=== PATIENT | male | born 1980 | race Caucasian/White ===

== ENCOUNTER 2022-12-03 08:14 | Emergency (ER) | payer SELFPAY ==
--- NOTE | ~2022-12-03 | CT_ITS ---
EXAMINATION: CT ABDOMEN AND PELVIS WITH CONTRAST CLINICAL INFORMATION: fevers, llq abd pain and diarrhea COMPARISON: None TECHNIQUE: Multidetector volumetric images were obtained from the superior aspect of the liver through the pubic symphysis following administration 85 mL of Omnipaque 350 intravenous contrast. Sagittal and coronal reformatted images were obtained on the technologist's workstation. Oral contrast: No This CT examination was performed using dose optimization techniques as appropriate, variously including the following: *Automated exposure control *Adjustment of mA and/or kV according to patient size (this includes techniques or standardized protocols for targeted exams where dose is matched to indication/reason for exam; i.e. extremities or head) *Use of iterative reconstruction technique DLP: 733 mGy-cm FINDINGS: LUNG BASES: The visualized lung bases are unremarkable. LIVER, GALLBLADDER, AND BILIARY TREE: Relative hypoattenuation of the hepatic parenchyma is consistent with steatosis. Focal fatty sparing is seen around the gallbladder fossa. The gallbladder is unremarkable with no evidence of radiopaque gallstones, gallbladder wall thickening, or obvious pericholecystic inflammatory changes. PANCREAS: Unremarkable. SPLEEN: Unremarkable. ADRENAL GLANDS: Unremarkable. KIDNEYS AND URETERS: The kidneys are normal in size, shape, and attenuation. No hydronephrosis, hydroureter, or calculi seen. No perinephric stranding. BLADDER: Unremarkable. GASTROINTESTINAL TRACT: There is focal bowel wall thickening at the sigmoid colon with significant pericolonic fat stranding around a diverticulum, most consistent with acute diverticulitis. The fat stranding extends into the adjacent retroperitoneal fascia without appreciable fluid collections. No significant extraluminal gas. A few additional colonic diverticula are identified. No other areas of diverticulitis. Appendix is normal. ABDOMINAL WALL: Small fat-containing umbilical and left inguinal hernias. Scar tissue is evident in the right inguinal region, potentially due to a prior right inguinal hernia repair. LYMPH NODES: Normal. VASCULAR: Unremarkable. PELVIC VISCERA: Unremarkable. OSSEOUS STRUCTURES: Mild osteoarthritis in the hips. No acute osseous findings. CT/CT abdomen pelvis w IV con IMPRESSION: 1. Acute uncomplicated sigmoid diverticulitis. 2. Hepatic steatosis. Fleischner guidelines were followed.
[2022-12-03 08:28] VITALS: BP 158/97; PULSE 99; RESP 16; TEMP 37.4; O2SAT 98; BMI 34.9
[2022-12-03 09:25] LABS: MANUAL DIFF FLAG NO
[2022-12-03] MEDS: Acetaminophen 325 MG TABLET 975 MG PO (09:25)
[2022-12-03 09:26] VITALS: RESP 16
[2022-12-03] MEDS: ondansetron HCL 4 MG/2 ML VIAL IVPUSH (09:26)
[2022-12-03] MEDS: Morphine Sulfate 4 MG/ML CARTRIDGE IVPUSH (09:26)
[2022-12-03 09:27] LABS: Basophils Percent Auto 0.3 % (0-2); Eosinophils Percent Auto 0.1 % (0-4); Hematocrit 40.5 % (42.0-52.0); Hemoglobin 14.1 g/dl (14.0-18.0); Imm Gran Abs Auto 0.03 X10*3/uL (0.00-0.03); Imm Gran Pct Auto 0.2 % (0.0-0.4); Lymphocytes Absolute Auto 1.7 X10*3/uL (1.2-4.9); Lymphocytes Percent Auto 13.2 % (20-40); Mean Corpuscular HGB Conc 34.8 g/dl (31.0-36.0); Mean Corpuscular Hemoglobin 30.1 pg (27.0-33.0); Mean Corpuscular Volume 86.4 fL (80.0-98.0); Mean Platelet Volume 10.5 fL (9.4-12.4); Monocytes Absolute Auto 1.7 X10*3/uL (0.1-1.2); Monocytes Percent Auto 13.4 % (2-11); Neutrophils Absolute Auto 9.3 x10*3/uL (2.0-8.3); Neutrophils Percent Auto 72.8 % (45-73); Platelet Count 240 X10*3/uL (160-400); Red Blood Count 4.69 X10*6/uL (4.60-5.80); Red Cell Distribution Width 11.8 % (11.0-16.0); SCAN SMEAR FLAG 1; White Blood Count 12.8 X10*3/uL (4.8-10.8)
[2022-12-03] MEDS: 0.9 % Sodium Chloride 1,000 ML 999 ML IVCONT (09:31)
[2022-12-03 09:33] LABS: INTERNATIONAL NORM RATIO 1.2 (0.9-1.1); Prothrombin Time 13.7 SEC (10.0-13.1)
[2022-12-03 09:50] LABS: Alanine Aminotransferase 28 U/L (0-40); Albumin Level 4.1 g/dL (3.5-5.0); Alkaline Phosphatase 50 U/L (39-117); Anion Gap 18 (12-20); Aspartate Amino Transferase 21 U/L (5-37); Bilirubin Total 1.2 mg/dL (0.0-1.0); Blood Urea Nitrogen 14 mg/dL (9-16); C Reactive Protein 25.25 mg/dL (< or = 0.50); Calcium 9.3 mg/dL (8.4-10.2); Carbon Dioxide 21 mmol/L (22-29); Chloride 105 mmol/L (96-108); Creatinine Clr Calc Pharmacy 89.7; Estimated Glomerular Filt Rate > 60; Glucose Random 123 mg/dL (60-115); Lipase 11 U/L (8-78); Magnesium 2.1 mg/dL (1.6-2.6); Potassium 3.5 mmol/L (3.3-5.1); Sodium 140 mmol/L (135-145); Total Protein 6.6 g/dL (6.5-8.0)
[2022-12-03] MEDS: iohexoL 350 MG/ML 100 ML INFUS..BTL IV (09:58)
[2022-12-03 10:03] LABS: Erythrocyte Sedimentation Rate 29 MM/HR (0-15)
[2022-12-03 10:04] LABS: Influenza A PCR NEGATIVE (Negative); Influenza B PCR NEGATIVE (Negative); Resp Syncy Virus RNA Qual PCR NEGATIVE (Negative); SARS COV2 PCR INHOUSE NEGATIVE (Negative)
--- NOTE | 2022-12-03 10:05 | ED.ABDPAIN ---
HPI - Abdominal Pain General Chief Complaint: Abdominal Pain Stated Complaint: Lower L abd pain, fever, headache Time Seen by Provider: 12/03/22 08:32 Source: patient and family Mode of arrival: ambulatory Limitations: no limitations History of Present Illness HPI narrative: 42 year old male c PMHX of gout who presents to the ed after a 4 day history of 8 out 10 constant dull lower abdominal pain. The patient reports yesterday evening the pain localized to the LLQ 10 out of 10 sharp pain. Last bowel movement this morning diarrhea. No bloody stools. Denies dysuria, frequency and urgency. Denies chest pain and palpitations. No vomiting and nausea. Laying flat makes the pain worse. Tried taking Tylenol last night, did not help pain. He reports dysuria, chills and sweats. No temp taken. Prior to abdominal pain onset the patient reports GERD symptoms, which he had never experience prior. Sick contacts positive, the patient is a teacher. Last food intake yesterday evening, consisted of saltine crackers. Surgical history includes right lower groin hernia repair 10 + years ago at [facility]. ? MD elicited complaint: abdominal pain Pertinent past history: other Onset (ago): day(s) Pain Consistency: constant Location: LLQ Severity: severe Pain scale (0-10): 10 Quality: sharp (LLQ) Radiation: none Migration to: no migration Exacerbating factors: other (Supine position ) Relieving factors: other (Sitting up helps ) Context: sick contacts Associated symptoms: diarrhea and chills Treatments prior to arrival: other (Tylenol ) Related Data Previous Rx's Medication Instructions Recorded amoxicillin 875 mg-potassium 1 tab PO BID DIVERTICULITIS 10 12/03/22 clavulanate 125 mg tablet days #20 tabs ibuprofen 800 mg tablet 800 mg PO Q8H PRN pain #14 tabs 12/03/22 ondansetron HCl 4 mg tablet 4 mg PO Q8H Nausea and vomiting 12/03/22 #14 tabs oxycodone 5 mg tablet 5 mg PO Q6H PRN pain #14 tabs 12/03/22 Allergies Allergy/AdvReac Type Severity Reaction Status Date / Time No Known Allergies Allergy Unverified 07/15/20 16:33 Review of Systems Review of Systems Constitutional : No Fever, + Chills, + Sweats, + Fatigue, + Malaise Cardiovascular : No Chest Pain, No SOB Respiratory : No Cough, No Sputum, No Wheezing, No Dyspnea Gastrointestinal : No Nausea, No Vomiting, + Diarrhea, + abdominal Pain, No Hematochezia, No Melena Genitourinary : No irregular bleeding, No Dysuria, No Urinary Frequency, No Hematuria,No Urinary Incontinence, No Urgency, No Flank Pain Musculoskeletal : No joint pain, No Myalgias, No Joint Swelling Skin : No Skin Lesions, No rash Neuro : No Weakness, No Numbness, No Paresthesias, No Loss of Consciousness, No Dizziness, No Headache Heme/Lymph: No Lymphadenopathy Endocrine : No Temperature Intolerance Yes all other systems are reviewed and are negative [facility] Past Medical History Attestation statement: The following information was validated with the patient. Source: old records reviewed, obtained from family and nursing notes reviewed Social History Social History Smoked in Last 30 Days: No Advance Directives: Yes Advance Directives Information Provided: Yes Advance Directives on File: No Physical Exam ED Vital Signs: Vital Signs - 24 hr 12/03/22 08:28 12/03/22 09:26 12/03/22 10:55 Temperature 99.4 F 98.4 F Pulse Rate 99 76 Respiratory Rate 16 16 22 H Blood Pressure 158/97 H 147/87 H Pulse Oximetry 98 100 Oxygen Delivery Method Room Air Room Air BMI result Body Mass Index 34.9 Vital signs have been reviewed and all within normal limits Appearance: Alert. Oriented X3. No acute distress. Head: Normal external exam. Normocephalic. Eyes: PERRLA. EOMI. Conjunctiva and sclera normal. Eyelids normal. ENT: Pharynx normal. Uvula midline. Mucous mucous membranes. No trismus noted. No drooling noted. No muffled voice noted. Neck: Normal inspection. Neck supple. FROM. No adenopathy. No meningeal signs. CVS: Normal heart rate and rhythm. Heart sound normal. No murmurs noted. Pulses normal throughout. Respiratory: No respiratory distress. Painless inspiration. Breath sounds normal. No wheezes/rales/rhonchi noted. Chest nontender. No accessory muscle usage noted or decreased air movement noted. Abdomen: LLQ pain to palpation. Soft. Nondistended. No guarding. No rigidity. Bowel sounds normal in all 4 quadrants. No distention noted. No organomegaly noted. No visible injury noted. + rebound tenderness to lower quadrants. Negative Rovsing sign. Positive obturator's sign. Positive psoas sign. Positive Mary sign. Back: No CVA tenderness. Full range of motion noted. Skin: Skin warm and dry. Normal skin color. Normal skin turgor. No rashes/lesions/lacerations noted. Extremities: Extremities exhibit normal range of motion. Extremities nontender. Neuro: Oriented X 3. No motor deficit. No sensory deficit. Reflexes normal. Normal steady gait. CN's II-XII intact bilaterally? Course Course Course Narrative: 9am - 42 year old male presents to the ed after a 4 day history of 8 out 10 constant dull lower abdominal pain. The patient reports yesterday evening the pain localized to the LLQ 10 out of 10 sharp pain. Diarrhea, fever, chills. Last loose stool this morning. Supine increases pain, sitting up helps. This patient is experiencing sharp 8 out of 10 LLQ Abdominal Pain. Positive abdominal exam, ddx for acute abdominal pain include inflammatory gastritis, cholecystitis, appendicitis, peritonitis, diverticulitis, kidney stones, and perforation. On exam patient has tenderness with light palpation to the LLQ, + psoas, + Leiter, - Rovsings sign, - McBurney's point, hypoactive bowel sounds in all 4 quads, Negative CVA tenderness. Physical exam and symptoms point towards diverticulitis. Plan: Labs Pain Management IV fluids CT - with contrast Reevaluation(s) Reevaluation #1: Labs reviewed - leukocytosis of 12,000. - ESR 29. - carbon dioxide 21. - random glucose 123. - total bilirubin 1.2. - CRP 25.25 - Patient negative for COVID/RSV/flu. - otherwise all other labs are within normal limits. CT scan abdomen pelvis with IV contrast revealed acute uncomplicated sigmoid diverticulitis. Hepatic steatosis. Otherwise no other acute processes are noted. Therefore patient now tolerating p.o. fluids and solids he was able to drink injury out any some saltine. Will be discharged with Augmentin for diverticulitis with GI referral and instructions to return if any new or worsening symptoms along with pain medication and to follow up with primary care provider. Patient understands agrees with this plan. Time: 11:50 Medical Decision Making Lab Data [facility] Lab Attestation statement: I reviewed the patient's lab results. 12/03/22 09:19 12/03/22 09:19 Labs: Lab Results 12/03/22 12/03/22 12/03/22 Range/Units 09:15 09:18 09:19 WBC (4.8-10.8) X10*3/uL RBC (4.60-5.80) X10*6/uL Hgb (14.0-18.0) g/dl Hct (42.0-52.0) % MCV (80.0-98.0) fL MCH (27.0-33.0) pg MCHC (31.0-36.0) g/dl RDW (11.0-16.0) % Plt Count (160-400) X10*3/uL MPV (9.4-12.4) fL Immature Gran % (Auto) (0.0-0.4) % Neut % (Auto) (45-73) % Lymph % (Auto) (20-40) % [place] % (Auto) (2-11) % Eos % (Auto) (0-4) % Baso % (Auto) (0-2) % Lymph # (Auto) (1.2-4.9) X10*3/uL [place] # (Auto) (0.1-1.2) X10*3/uL Eos # (Auto) (0.0-0.4) X10*3/uL Baso # (Auto) (0.0-0.2) X10*3/uL Abs Immat Gran (auto) (0.00-0.03) X10*3/uL Absolute Neuts (auto) (2.0-8.3) x10*3/uL Absolute Nucleated RBC (0.0-0.012) X10*3/uL Nucleated RBC % (auto) (0.0-0.2) /100WBC ESR 29 H (0-15) MM/HR PT (10.0-13.1) SEC INR (0.9-1.1) Sodium (135-145) mmol/L Potassium (3.3-5.1) mmol/L Chloride (96-108) mmol/L Carbon Dioxide (22-29) mmol/L Anion Gap (12-20) BUN (9-16) mg/dL Creatinine (0.5-1.4) mg/dL Estim Creat Clear Calc Estimated GFR Random Glucose (60-115) mg/dL Lactic Acid 1.0 (0.5-2.0) mmol/L Calcium (8.4-10.2) mg/dL Magnesium (1.6-2.6) mg/dL Total Bilirubin (0.0-1.0) mg/dL AST (5-37) U/L ALT (0-40) U/L Alkaline Phosphatase (39-117) U/L C-Reactive Protein (< or = 0.50) mg/dL Total Protein (6.5-8.0) g/dL Albumin (3.5-5.0) g/dL Lipase (8-78) U/L Influenza Type A (PCR) NEGATIVE (Negative) Influenza Type B (PCR) NEGATIVE (Negative) RSV RNA Qual (PCR) NEGATIVE (Negative) SARS-CoV-2 RNA (RT-PCR) NEGATIVE (Negative) 12/03/22 12/03/22 12/03/22 Range/Units 09:19 09:19 09:19 WBC 12.8 H (4.8-10.8) X10*3/uL RBC 4.69 (4.60-5.80) X10*6/uL Hgb 14.1 (14.0-18.0) g/dl Hct 40.5 L (42.0-52.0) % MCV 86.4 (80.0-98.0) fL MCH 30.1 (27.0-33.0) pg MCHC 34.8 (31.0-36.0) g/dl RDW 11.8 (11.0-16.0) % Plt Count 240 (160-400) X10*3/uL MPV 10.5 (9.4-12.4) fL Immature Gran % (Auto) 0.2 (0.0-0.4) % Neut % (Auto) 72.8 (45-73) % Lymph % (Auto) 13.2 L (20-40) % [place] % (Auto) 13.4 H (2-11) % Eos % (Auto) 0.1 (0-4) % Baso % (Auto) 0.3 (0-2) % Lymph # (Auto) 1.7 (1.2-4.9) X10*3/uL [place] # (Auto) 1.7 H (0.1-1.2) X10*3/uL Eos # (Auto) 0.0 (0.0-0.4) X10*3/uL Baso # (Auto) 0.0 (0.0-0.2) X10*3/uL Abs Immat Gran (auto) 0.03 (0.00-0.03) X10*3/uL Absolute Neuts (auto) 9.3 H (2.0-8.3) x10*3/uL Absolute Nucleated RBC 0.000 (0.0-0.012) X10*3/uL Nucleated RBC % (auto) 0.0 (0.0-0.2) /100WBC ESR (0-15) MM/HR PT 13.7 H (10.0-13.1) SEC INR 1.2 H (0.9-1.1) Sodium 140 (135-145) mmol/L Potassium 3.5 (3.3-5.1) mmol/L Chloride 105 (96-108) mmol/L Carbon Dioxide 21 L (22-29) mmol/L Anion Gap 18 (12-20) BUN 14 (9-16) mg/dL Creatinine 1.19 (0.5-1.4) mg/dL Estim Creat Clear Calc 89.7 Estimated GFR > 60 Random Glucose 123 H (60-115) mg/dL Lactic Acid (0.5-2.0) mmol/L Calcium 9.3 (8.4-10.2) mg/dL Magnesium 2.1 (1.6-2.6) mg/dL Total Bilirubin 1.2 H (0.0-1.0) mg/dL AST 21 (5-37) U/L ALT 28 (0-40) U/L Alkaline Phosphatase 50 (39-117) U/L C-Reactive Protein 25.25 H (< or = 0.50) mg/dL Total Protein 6.6 (6.5-8.0) g/dL Albumin 4.1 (3.5-5.0) g/dL Lipase 11 (8-78) U/L Influenza Type A (PCR) (Negative) Influenza Type B (PCR) (Negative) RSV RNA Qual (PCR) (Negative) SARS-CoV-2 RNA (RT-PCR) (Negative) Independent Interpretation I performed an independent interpretation of an: CT Scan Radiology Impression Discussion of test interpretation with radiology: I have reviewed the radiologist's reading. Radiologist Impression: FINDINGS: LUNG BASES: The visualized lung bases are unremarkable.? LIVER, GALLBLADDER, AND BILIARY TREE: Relative hypoattenuation of the hepatic parenchyma is consistent with steatosis. Focal fatty sparing is seen around the gallbladder fossa. The gallbladder is unremarkable with no evidence of radiopaque gallstones, gallbladder wall thickening, or obvious pericholecystic inflammatory changes.? PANCREAS: Unremarkable.? SPLEEN: Unremarkable.? ADRENAL GLANDS: Unremarkable.? KIDNEYS AND URETERS: The kidneys are normal in size, shape, and attenuation. No hydronephrosis, hydroureter, or calculi seen. No perinephric stranding. ? BLADDER: Unremarkable.? GASTROINTESTINAL TRACT: There is focal bowel wall thickening at the sigmoid colon with significant pericolonic fat stranding around a diverticulum, most consistent with acute diverticulitis. The fat stranding extends into the adjacent retroperitoneal fascia without appreciable fluid collections. No significant extraluminal gas. A few additional colonic diverticula are identified. No other areas of diverticulitis. Appendix is normal.? ABDOMINAL WALL: Small fat-containing umbilical and left inguinal hernias. Scar tissue is evident in the right inguinal region, potentially due to a prior right inguinal hernia repair.? LYMPH NODES: Normal. VASCULAR: Unremarkable. PELVIC VISCERA: Unremarkable.? OSSEOUS STRUCTURES: Mild osteoarthritis in the hips. No acute osseous findings.? CT/CT abdomen pelvis w IV con IMPRESSION: 1.? Acute uncomplicated sigmoid diverticulitis. 2.? Hepatic steatosis. ? Fleischner guidelines were followed. Independent Historian Clinical information obtained from an independent historian. History obtained from or confirmed by: Parent External Record Review External record reviewed: Inpatient record, Office record, Outpatient record, Prior outpatient labs, Prior outpatient radiology, Primary care record and Outside ED record Prescription Management I considered prescription management with: Pain Medication and Antibiotic Chronic Conditions Patient?s care impacted by: Other (gout) Medications Administered Discontinued Medications Generic Name Dose Route Start Last Admin Trade Name Freq PRN Reason Stop Dose Admin Acetaminophen 975 mg 12/03/22 09:03 12/03/22 09:25 Acetaminophen 325 Mg Tablet PO 12/03/22 09:04 975 mg ONCE ONE Administration Amoxicillin/Clavulanate Potassium 875 mg 12/03/22 11:09 12/03/22 11:27 Amoxicillin/Potassium Clav 875 Mg Tablet PO 12/03/22 11:10 875 mg ONCE ONE Administration Sodium Chloride 1,000 mls @ 999 mls/hr 12/03/22 09:15 12/03/22 10:56 Ns IVCONT 12/03/22 10:15 Infused .Q1H1M MILLIE Infusion Iohexol 100 ml 12/03/22 09:58 12/03/22 09:58 Iohexol 350 Mg/Ml 100 Ml Infus..Btl IV 12/03/22 09:59 85 ml ONCE ONE Administration Morphine Sulfate 4 mg 12/03/22 09:03 12/03/22 09:26 Morphine Sulfate 4 Mg/Ml Cartridge IVPUSH 12/03/22 09:04 4 mg ONCE ONE Administration Protocol Ondansetron HCl 4 mg 12/03/22 09:03 12/03/22 09:26 Ondansetron Hcl 4 Mg/2 Ml Vial IVPUSH 12/03/22 09:04 4 mg ONCE ONE Administration Discharge Plan Discharge Clinical Impression: Diverticulitis Patient Disposition: Home, Self-Care Instructions: Diverticulitis (ED), Diverticulitis Diet (ED) Prescriptions: New amoxicillin-pot clavulanate 875-125 mg tablet 1 tab PO BID 10 Days Qty: 20 0RF ondansetron HCl 4 mg tablet 4 mg PO Q8H Qty: 14 0RF oxycodone 5 mg tablet 5 mg PO Q6H PRN (Reason: pain) Qty: 14 0RF Rx Instructions: Partial Fill upon patient request. ibuprofen 800 mg tablet 800 mg PO Q8H PRN (Reason: pain) Qty: 14 0RF Referrals: [facility] [place] [facility] [Provider Group] (Call tomorrow to make a follow-up appointment within the next few weeks) Stand Alone Forms: Work/School Release Interventions: ED Discharge Assessment Last Done: 12/03/22 11:30 Discharge Date/Time: 12/03/22 11:32
--- NOTE | 2022-12-03 10:38 | PC.NURSE ---
pt resting peacefully with
[2022-12-03 10:55] VITALS: BP 147/87; PULSE 76; RESP 22; TEMP 36.9; O2SAT 100
[2022-12-03] MEDS: Amoxicillin/Potassium Clav 875 MG TABLET PO (11:27)
== END 2022-12-03 11:32 | disposition home or self-care (01) ==
PROVIDERS: Physician Assistant Medical; Emergency Provider Student in an Organized Health Care Education/Training Program
DX: K57.32 Diverticulitis of large intestine without perforation or abscess without bleeding (principal); R10.32 Left lower quadrant pain; Z79.899 Other long term (current) drug therapy; Z20.822 Contact with and (suspected) exposure to COVID-19; Z20.828 Contact with and (suspected) exposure to other viral communicable diseases
CPT/HCPCS: 0241U; 36415; 74177; 80053; 83605; 83690; 83735; 85025; 85610; 85652; 86140; 87040; 96361; 96374; 96375; 99284; J2270; J2405; Q9967

== ENCOUNTER 2025-01-02 10:20 | Day surgery (SDC) | payer OTHER, SELFPAY ==
[2024-12-31 15:07] VITALS: BMI 32.6
--- NOTE | 2025-01-01 13:57 | HO.ANESPROP2 ---
HPI - Anesthesia Eval Consult details Narrative: 44yo M for Colonoscopy PMF Active Problems Active Problems: All Active Problems Gout (Acute) Past Medical History Medical History (Updated 12/31/24 @ 15:07 by Sri Guthrie RN) Gout Diverticulitis HTN (hypertension) Surgical History Surgical History (Updated 12/31/24 @ 15:07 by Sri Guthrie RN) Hx of adenoidectomy Hx of right inguinal hernia repair Social History Social History (Updated 12/31/24 @ 15:08 by Sri Guthrie RN) Patient Tobacco Use Status: Former Tobacco user Tobacco use type: Cigarette Meds Allergies Allergy/AdvReac Type Severity Reaction Status Date / Time No Known Allergies Allergy Unverified 07/15/20 16:33 Home Medications ?Medication ?Instructions ?Recorded ?Confirmed ?Last Taken ?Type allopurinol 12/31/24 12/31/24 Unknown History lisinopril 12/31/24 Unknown History Exam Height,Weight and Vital Signs: Height 5 ft 7 in Weight 94.347 kg Assessment and Plan Assessment Anesthesia Assessment: Chart Reviewed
--- OUTSIDE RECORDS SUMMARY | 2025-01-01 16:16 | XMS_ITS | Patient Health Record ---
Author Organization [facility] Address [address] [place] [address] Care Team Providers Care Microfilm Equipment Inspector Name Role Phone ROSA Gtz, LORRAINE Primary Care Provider Addison Rivera Unavailable [phone] Allergies No Known Allergies Reason For Referral Referring Provider First Name LORRAINE Referring Provider Last Name ROSA Referred Organization [facility] Referred Provider Addison Napier Referred Address [address],[place], [place],[address],[place] Referred Provider Specialty Gastroentero logy Referral Priority Routine Referring Provider First Name LORRAINE Referring Provider Last Name ROSA Referred Organization [facility] Referred Provider Addison Napier Referred Address [address] [place] [address], [address],[place], [place],[address], Referred Provider Specialty Gastroentero logy Referral Priority Routine Medications Medication SIG (Take, Route, Frequency, Duration) Notes Start Date End Date Status Lisinopril Active Allopurinol Active Social History Tobacco Use: Social History Observation Description Date Details (start date - stop date) Former Smoker NA - NA Tobacco Use/Smoking Question Answer Notes Patient is a former smoker How long has it been since you last smoked? > 10 years Alcohol Screen Question Answer Notes Did you have a drink containing alcohol in the p ast year? No Points 0 Interpretation Negative Section Notes: Nonsmoker; no sig alcohol Problems Problem Type SNOMED Code ICD Code Onset Dates Problem Status W/U Status Risk Notes Problem Colon cancer screening (996533337) Colon cancer screening (Z12.11) Active confirmed Problem Pre-procedure evaluation check (179667804) Encounter for other preprocedural examination (Z01.818) Active confirmed Vital Signs Blood pressure diastolic 00 mm Hg 10/02/2024 Height 5 ft 7 in in 10/02/2024 Blood pressure systolic 00 mm Hg 10/02/2024 Weight 208 lbs 10/02/2024 BMI 32.57 kg/m2 10/02/2024 Encounters Encounter Location Date Provider Diagnosis [facility] [address] [place] [address] 10/02/2024 Addison Napier Colon cancer screeni ng Z12.11 and Encounter for other preprocedural examination Z01.818 Assessments Encounter Date Diagnosis (ICD Code) Assessment Notes Treatment Notes Treatment Clinical Notes Section Notes 10/02/2024 Colon cancer screening (ICD-10 - Z12.11) Overall, Lisa appears quite well. Given his age and good clinical appearance, I did recommend a colonoscopy for screening purposes. We did review the rationale for this regard to colon cancer prevention. Full consent was obtained for this, including risks of bleeding and perforation. The procedure will be done with monitored anesthesia care. Lisa was comfortable with this plan. Thank you again for allowing me to participate in Lisa's care. I shall continue to keep you advised of his progress. 10/02/2024 Encounter for other preprocedural examination (ICD-10 - Z01.818) Overall, Lisa appears quite well. Given his age and good clinical appearance, I did recommend a colonoscopy for screening purposes. We did review the rationale for this regard to colon cancer prevention. Full consent was obtained for this, including risks of bleeding and perforation. The procedure will be done with monitored anesthesia care. Lisa was comfortable with this plan. Thank you again for allowing me to participate in Lisa's care. I shall continue to keep you advised of his progress. Plan Of Treatment Future Test Test Name Order Date COLONOSCOPY 10/02/2024 Next Appt Details Provider Name:Addison Napier , 01/02/2025 11:30:00 AM, [address] , [place], [place], [id number], Insurance Providers Payer Name Payer Address Payer Phone Subscriber Number Group Number Insured Name Patient Relationship to Insured Coverage Start Date Coverage End Date [facility] [employer] [address] [place]CCANN [id number] ALTON LISA Self - patient is the insured Medical (General) History Medical History History ICD Code HTN Diverticulitis---sigmoid--villa d a CT in ER in 11/2022--treated with outpatient antibiotics Gout Denies ME,DM,CVA,Lung disease,renal dise ase Surgical History Surgery Date(Month/Year) Right inguinal hernia repair Adenoidectomy
--- OUTSIDE RECORDS SUMMARY | 2025-01-01 16:16 | XMS_ITS ---
Author Organization [facility] Address [address] [place] [id number] Care Team Providers Care Television Script Writer Name Role Phone LORRAINE LEE M.D. Primary Care Provider Addison Rivera [phone] Allergies No Known Allergies REASON FOR VISIT Patient presents today for a SCREENING COLON Medications Medication SIG (Take, Route, Frequency, Duration) [...] Status Risk Notes Problem Colon cancer screening (400747340) Colon cancer screening (Z12.11) Active confirmed Problem Pre-procedure evaluation check (320063729) Encounter for other preprocedural examination (Z01.818) Active confirmed Vital Signs Blood pressure systolic 00 mm Hg 10/02/20 24 Blood pressure diastolic 00 mm Hg 024 Height 5 ft 7 in in 10/02/2024 Weight 208 lbs 10/02/2024 BMI 32.57 kg/m2 10/02/2024 Encounters Encounter Location Date Provider Diagnosis [facility] [address] [place] [phone] 10/02/2024 Addison Napier Colon cancer screeni ng [...] Order Date COLONOSCOPY 10/02/2024 Next Appt Details Follow Up: prn, Reason: Provider Name:Addison Napier , 01/02/2025 11:30:00 AM, [address] [place] [address] , [place], [place], [id number], Progress Notes * LISA DANGDOB:1980 (43 yo M)Acc No.[id number]:10/02/2024 Progress Notes Patient:?LISA DANG Provider:?Addison Napier MD :1980???Age:43 Y???Sex:Male Fran e:10/02/2024 Address:[facility] [id number] Pcp:LORRAINE LEE M.D. Subjective: * Chief Complaints: * ???Patient presents today fo r a SCREENING COLON * HPI: ???incontinence:? I saw Lisa in the office today for evaluation of colorectal cancer screening. ?As you know, Lisa is a 43-year-old male who presently feels well. He enjoys a good appetite and denies any significant heartburn or dysphagia. His bowel movements have been regular and without any signs of bleeding. He denies abdominal pain, jaundice, nor unintentional weight loss. His only family history of colon cancer is in a paternal grandfather. Lisa has never had a colonoscopy. * ROS:?General/Constitutional:?Change in appetite?denies.?Chills?denies.?Fatigue?denies.?Ophthalmologic:?Comments?all negative.?ENT:?Comments?all negative.?Respiratory:?hemoptysis?denies.?Cough?denies.?Cardiovascular:?Chest pain?denies.?Orthopnea?denies.?Gastrointestinal:?Comments?See HPI for details.?Genitourinary:?Hematuria?denies.?Dysuria?denies.?Musculoskeletal:?Painful joints?denies.?Weakness?denies.?Skin:?Itching?denies.?Rash?denies.?Neurologic:?Headache?denies.?Seizures?denies.?Psychiatric:?Comments?all negative.? * Medical History:? * Surgical History:?Right ingu inal hernia repair Adenoidectomy * Hospitalization/Major Diagno stic Procedure:?No Hospitalization History. * Family History:?Father: dece ased.?Mother: alive.?Paternal Grand Father: , diagnosed with Colon cancer.? * Social History:?Tobacco Use:?Tobacco Use/Smoking?Patient is a?former smoker,?How long has it been since you last smoked??> 10 years.?Drugs/Alcohol:?Alcohol Screen?Did you have a drink containing alcohol in the past year??No,?Points?0,?Interpretation?Negative.?Miscellaneous:?Marital status: . 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 ???Nonsmoker; no sig alcohol. * Medications:?TakingLisinopri l Allopurinol Medication List reviewed and reconciled with the patientTaking Lisinopril Taking Allopurinol Medication List reviewed and reconciled with the patient * Allergies:?N.K.D.A.yes[Aller gies Verified] Objective: * Vitals:?Wt: 208 lbs, Ht: 5 f t 7 in, BMI:32.57 Index, BP: 00/00 mm Hg. * Examination: ???General Examination: ?GENERAL APPEARANCE:?pleasant, well nourished, well developed, in no acute distress.?EYES:?sclera non-icteric.?ORAL CAVITY:?mucosa moist.?NECK/THYROID:?no cervical lymphadenopathy, neck supple.?SKIN:?nonjaundiced, no spider angiomata.?HEART:?S1, S2 normal.?LUNGS:?clear to auscultation bilaterally.?ABDOMEN:?normal bowel sounds, no guarding or rigidity, no guarding or rigidity, no masses palpable, soft, nontender, nondistended.?EXTREMITIES:?no edema.?NEUROLOGIC:?alert and oriented.? Assessment: * Assessment: 1.?Encounter for other prepr ocedural examination - Z01.818 (Primary)?2.?Colon cancer screening - Z12.11? Overall, Lisa appears nino te well. Given his age and good clinical [...] to keep you advised of his progress. Plan: * Treatment: * Procedure Codes:?3017F COLOR ECTAL CA SCREEN DOC [id number] TOBACCO [id number] BP SCR NOT PRFRM REC REASON NOS * Preventive Medicine:? ??Counseling:?Care goal follow-up plan:?Above Normal BMI Follow-up?Giving encouragement to exercise,?BMI management provided?Yes.? * Follow Up:?prn * * Sign off status: Completed true * Provider:?Addison Napier MD Date:? 024 Generated for Ruth Kunstadter – [employer] bailey/[email or web address]/eTransmitting on:?01/01/2025 04:16 PM EST History and Physical Notes * HPI (History of Present Illness) Category Sub-Category Detail Notes Category Not es incontinence I saw Lisa in the office today for evaluation of colorectal cancer screening. As you know, Lisa is a 43-year-old male who presently feels well. He enjoys a good appetite and denies any significant heartburn or dysphagia. His bowel movements have been regular and without any signs of bleeding. He denies abdominal pain, jaundice, nor unintentional weight loss. His only family history of colon cancer is in a paternal grandfather. Lisa has never had a colonoscopy. Examination Category Sub-Category Detail Notes Category Not es General Examination GENERAL APPEARANCE: pleasant , well nourished, well developed, in no acute distress HEAD: EYES: sclera non-icteric EARS: NOSE: THROAT: NECK/THYROID: no cervical lymphade nopathy, neck supple HEART: S1, S2 normal CHEST: LUNGS: clear to auscultatio n bilaterally ABDOMEN: normal bowel sounds, no guarding or rigidity, no guarding or rigidity, no masses palpable, soft, nontender, nondistended NEUROLOGIC: alert and oriented SKIN: nonjaundiced, no spi anay angiomata EXTREMITIES: no edema PERIPHERAL PULSES: BACK: BREASTS: MUSCULOSKELETAL: MALE GENITOURINARY: LYMPH NODES: RECTAL EXAM: FEMALE GENITOURINARY: ORAL CAVITY: mucosa moist
--- OUTSIDE RECORDS SUMMARY | 2025-01-01 16:16 | XMS_ITS | Continuity of Care Document ---
Author Name [facility] Organization [facility] Care Team Providers Care Hepatology Physician Name Role Phone [facility] Unavailable Unavailable Problems Combined list of problems from Department of Defense and Veterans Affairs facilities. It does not include entries that were removed or entered in error. Problem Status Onset Date Problem Type Date of Resolution Comments Source Gout Active 3 Condition [facility] [place] [facility] visit for: services physical Inactive Condition DoD visit for: services physical accession Active Condition DoD visit for: occupational health / fitness exam Active Condition [facility] pneumonia Inactive Condition DoD Fever Active Condition [facility] Hypertension Active Condition [facility] LD Obesity Active Condition [place] Diagnosis: ICD-10-CM I10 Essential (primary) hypertension Active Diagnosis [place] Diagnosis: ICD-10-CM R03.0 Elevated blood-pressure reading, w/o diagnosis of htn Active Diagnosis [facility] Diagnosis: ICD-10-CM E66.9 Obesity, unspecified Active Diagnosis [place] Medications Combined list of outpatient medications from Department of Defense and Veterans Affairs facilities.Medications provided include 1) outpatient medications from the last 15 months, and 2) patient-reported medications. Medication Details Route Status Patient Instructions Prescription Expires Prescription Number Last Dispense Date Ordering Provider Order Date Order Qty Source Allopurinol (Alloprim) Tablet 100 mg Oral TAKE FOUR TABLETS BY MOUTH ONCE DAILY FOR GOUT Active 03/29/2025 [id number] LORRAINE LEE 2023 240 [facility] Allopurinol (Alloprim) Tablet 100 mg Oral TAKE FOUR TABLETS BY MOUTH ONCE DAILY FOR GOUT Discont inued 03/15/2024 [id number] LORRAINE LEE 2023 240 [facility] ALLOPURINOL 100MG TAB TAKE FOUR TABLETS BY MOUTH ONCE DAILY FOR GOUT ORAL ACTIVE 03/29/2025 [id number] 5 SUMI LEE SA 2023 240 [facility] ALLOPURINOL 100MG TAB TAKE FOUR TABLETS BY MOUTH ONCE DAILY FOR GOUT ORAL 03/15/2024 [id number] 4 SUMI LEE SA 2022 240 [place] LISINOPRIL 10MG TAB TAKE ONE TABLET BY MOUTH ONCE DAILY TO CONTROL BLOOD PRESSURE ORAL DISCONT INUED (EDIT) 08/22/2024 [id number] 4 SUMI LEE SA 2023 60 [place] LISINOPRIL 20MG TAB TAKE ONE TABLET BY MOUTH ONCE DAILY TO CONTROL BLOOD PRESSURE ORAL ACTIVE 09/17/2025 [id number] 5 SUMI LEE SA 2024 90 [place] LISINOPRIL 20MG TAB TAKE ONE TABLET BY MOUTH ONCE DAILY TO CONTROL BLOOD PRESSURE ORAL DISCONT INUED 08/16/2025 [id number] 4 SUMI LEE SA 2023 90 [place] LISINOPRIL 5MG TAB TAKE ONE TABLET BY MOUTH ONCE DAILY TO CONTROL BLOOD PRESSURE ORAL DISCONT INUED (EDIT) 07/19/2024 [id number] 4 SUMI LEE SA 2023 60 [place] Allergies, Adverse Reactions, Alerts Combined list of allergies from Department of Defense and Veterans Affairs facilities. It does not include entries that were removed or entered in error. Substance Category Reaction Severity Reaction type Status Date Reported Comments Source No Known Allergies Drug allergy (disorder) active 05/25/2010 [facility] Immunizations Combined list of available immunizations from the Department of Defense and Veterans Affairs facilities. Immunization Series Date Given Administered By Site Reaction Lot Number CVX Code Drug Stress Analyst Status Comments Source HEP B, ADULT 2022 EUGENIA GABRIEL ON M LEFT DELTO ID [id number] complet ed [facility] COVID-19 (MODERNA), MRNA, LNP-S, PF, 100 MCG/0.5ML DOSE OR 50 MCG/0.25ML DOSE 2 2020 207 complet ed Covid Card Lot#: [id number] Mfr: [employer] [facility] [place] [facility] [facility] COVID-19 (MODERNA), MRNA, LNP-S, PF, 100 MCG/0.5ML DOSE OR 50 MCG/0.25ML DOSE 1 2020 207 complet ed Covid Card Lot#: [id number] Mfr: [employer] [place] [facility] Influenza, seasonal, injectable 6 2013 Unknown, Provider [id number] (IDB) complet ed Influenza , seasonal, injectabl e DoD Influenza, seasonal, injectable, preservative free 1 2012 Unknown, Provider [id number] 140 [employer] (CSL) complet ed Influenza , seasonal, injectabl e, preservat patricia free DoD Influenza, seasonal, injectable 4 2011 Unknown, Provider [id number] 1A 141 [employer]. (CS) complet ed Influenza , seasonal, injectabl e DoD vaccinia (smallpox) vaccine 1 2011 Unknown, Provider [id number] [facility] ([facility]) complet ed vaccinia (smallpox ) vaccine DoD VACCINIA (SMALLPOX) 1 2011 75 complet ed JLV Lot#: [id number] [place] [facility] [place] [facility] anthrax vaccine 2 2011 Unknown, Provider [id number] [employer] [place] (MIP) complet ed anthrax vaccine DoD ANTHRAX 2 2011 RIGHT ARM 24 complet ed JLV Lot#: [id number] [place] [facility] [place] [facility] anthrax vaccine 1 2011 Unknown, Provider [id number] [employer] [place] (MIP) complet ed anthrax vaccine DoD typhoid Vi capsular polysaccharid e vaccine 1 2011 Unknown, Provider [id number] San[employer]i Pasteur ([facility]) complet ed typhoid Vi capsular polysacch aride vaccine DoD ANTHRAX 1 2011 RIGHT ARM 24 complet ed JLV Lot#: [id number] IN Independent IP [facility] [place] [facility] TYPHOID, VICPS 2011 LEFT ARM 101 complet ed JLV Lot#: [id number] Mfr: SANOFI PASTEUR [place] [facility] [facility] Influenza, seasonal, injectable 1 2010 Unknown, Provider [id number] Sanofi Pasteur ([facility]) complet ed Influenza , seasonal, injectabl e DoD hepatitis A vaccine, adult dosage 3 2010 Unknown, Provider [id number] 52 [facility] ([facility]) complet ed hepatitis A vaccine, adult dosage DoD HEP A, ADULT 3 2010 LEFT ARM 52 complet ed JLV Lot#: [id number] A [facility] hepatitis B vaccine, adult dosage 3 2010 Unknown, Provider [id number] 43 [facility] ([facility]) complet ed hepatitis B vaccine, adult dosage DoD HEP B, ADULT 3 2010 LEFT ARM 43 complet ed JLV Lot#: [id number] A [facility] influenza virus vaccine, split virus (incl. purified surface antigen)-reti red CODE 1 2009 Unknown, Provider [id number] San[employer]i Pasteur ([facility]) complet ed influenza virus vaccine, split virus (incl. purified surface antigen)- retired CODE [facility] hepatitis A and hepatitis B vaccine 2 2009 Unknown, Provider [id number] 104 [facility] ([facility]) complet ed hepatitis A and hepatitis B vaccine DoD HEP A-HEP B 2 2009 104 complet ed JLV Lot#: [id number] A [facility] hepatitis A and hepatitis B vaccine 1 2009 Unknown, Provider [id number] 104 [facility] ([facility]) complet ed hepatitis A and hepatitis B vaccine [facility] HEP A-HEP B 1 2009 LEFT ARM 104 complet ed JLV Lot#: [id number] A [facility] tuberculin skin test; purified protein derivative solution, intradermal 1 2009 Unknown, Provider [id number] Sanofi Pasteur ([facility]) complet ed tuberculi n skin test; purified protein derivativ e solution, intraderm al [facility] poliovirus vaccine, inactivated 1 2009 Unknown, Provider [id number] Sanofi Pasteur ([facility]) complet ed polioviru s vaccine, inactivat ed [facility] influenza virus vaccine, split virus (incl. purified surface antigen)-reti red CODE 1 2009 Unknown, Provider [id number] 1A 15 [employer] ([facility]) complet ed influenza virus vaccine, split virus (incl. purified surface antigen)- retired CODE DoD meningococcal polysaccharid e (groups A, C, Y and W-135) diphtheria toxoid conjugate vaccine (MCV4P) 1 2009 Unknown, Provider [id number] Sanofi Pasteur ([facility]) complet ed meningoco ccal polysacch aride (groups A, C, Y and W-135) diphtheri a toxoid conjugate vaccine (MCV4P) DoD tetanus toxoid, reduced diphtheria toxoid, and acellular pertu is vaccine, adsorbed 1 2009 Unknown, Provider [id number] [facility] [employer] (SK[facility]) complet ed tetanus toxoid, reduced diphtheri a toxoid, and acellular pertussis vaccine, adsorbed DoD Novel influenza-H1N 1-09, injectable 1 2009 Unknown, Provider [id number] 127 [employer] [facility]. (NOV) complet ed Novel influenza -[id number], injectabl e DoD MENINGOCOCCAL POLYSACCHARID E (GROUPS A, C, Y, W-135) TT CONJUGATE 2009 LEFT ARM 203 complet ed JLV Lot#: [id number] Mfr: SANOFI PASTEUR [facility] TDAP 2009 RIGHT ARM 115 complet ed Lot#: [id number] A [facility] [place] [facility] Results Combined list of recent chemistry, hematology and other laboratory results from Department of Defense and Veterans Affairs, ranging from 15 months to all on record, depending upon the facility. Order Name Results Value Reference Range Date Interpretation Specimen Comments Source BASIC METABOLI C PANEL (non-fas ting) UREA NITROGEN [MASS/VOLU ME] IN SERUM OR PLASMA 19 mg/dL 7 - 25 09/16 Specimen Type: SERUM No comment entered. Ordering Provider: LORRAINE LEE Report Released Date/Time: Sep 16, 2024 11:40 AM Reporting Lab: [facility] [address] [address] Performing Lab: [facility]USE[facility] [address] [address] [facility] BASIC METABOLI C PANEL (non-fas ting) GLUCOSE [MASS/VOLU ME] IN SERUM OR PLASMA 117 mg/dL 65 - 100 09/16 H Specimen Type: SERUM No comment entered. Ordering Provider: LORRAINE LEE Report Released Date/Time: Sep 16, 2024 11:40 AM Reporting Lab: [facility] [place] [address] [address] Performing Lab: [place] [address] [address] [facility] [place] [facility] BASIC METABOLI C PANEL (non-fas ting) SODIUM [MOLES/VOL UME] IN SERUM OR PLASMA 142 mmol/L 135 - 145 09/16 Specimen Type: SERUM No comment entered. Ordering Provider: LORRAINE LEE Report Released Date/Time: Sep 16, 2024 11:40 AM Reporting Lab: [facility] [place] [address] [address] Performing Lab: [place] [facility] [place] [address] [address] [place] [facility] [place] [facility] BASIC METABOLI C PANEL (non-fas ting) POTASSIUM [MOLES/VOL UME] IN SERUM OR PLASMA 4.7 mmol/L 3.5 - 5.0 09/16 Specimen Type: SERUM No comment entered. Ordering Provider: LORRAINE LEE Report Released Date/Time: Sep 16, 2024 11:40 AM Reporting Lab: [place] [facility] [place] [address] [address] Performing Lab: [facility] [place] [address] [address] [place] [facility] BASIC METABOLI C PANEL (non-fas ting) CHLORIDE [MOLES/VOL UME] IN SERUM OR PLASMA 107 mmol/L 100 - 110 09/16 Specimen Type: SERUM No comment entered. Ordering Provider: LORRAINE LEE Report Released Date/Time: Sep 16, 2024 11:40 AM Reporting Lab: [place] [facility] [place] [address] [address] Performing Lab: [facility] [place] [facility] [address] [address] [facility] [place] [facility] BASIC METABOLI C PANEL (non-fas ting) CARBON DIOXIDE, TOTAL [MOLES/VOL UME] IN SERUM OR PLASMA 26 meq/L 20 - 30 09/16 Specimen Type: SERUM No comment entered. Ordering Provider: LORRAINE LEE Report Released Date/Time: Sep 16, 2024 11:40 AM Reporting Lab: [place] [facility] [place] [facility] [address] [address] Performing Lab: [place] [address] [address] [facility] [place] [facility] BASIC METABOLI C PANEL (non-fas ting) CREATININE [MASS/VOLU ME] IN SERUM OR PLASMA 0.95 mg/dL 0.50 - 1.40 09/16 Specimen Type: SERUM No comment entered. Ordering Provider: LORRAINE LEE Report Released Date/Time: Sep 16, 2024 11:40 AM Reporting Lab: [facility] [address] Performing Lab: IN [facility] [address] [address] [facility] [place] [facility] BASIC METABOLI C PANEL (non-fas ting) GLOMERULAR FILTRATION RATE/1.73 SQ M.PREDICTE D [VOLUME RATE/AREA] IN SERUM, PLASMA OR BLOOD BY CREATININE -BASED FORMULA (CKD-EPI 2020) >90mL/mi n 60 09/16 Specimen Type: SERUM No comment entered. Ordering Provider: LORRAINE LEE Report Released Date/Time: Sep 16, 2024 11:40 AM Reporting Lab: [place] [address] [address] Performing Lab: [facility] [address] [address] [facility] [place] [facility] ELECTROL YTE PANEL SODIUM [MOLES/VOL UME] IN SERUM OR PLASMA 143 mmol/L 135 - 145 06/23 Specimen Type: SERUM No comment entered. Ordering Provider: LORRAINE LEE Report Released Date/Time: Jun 23, 2024 01:45 PM Reporting Lab: [facility] [place] [facility] [address] [address] Performing Lab: [facility] [place] [facility] [address] [address] [facility] [place] [facility] ELECTROL YTE PANEL POTASSIUM [MOLES/VOL UME] IN SERUM OR PLASMA 4.6 mmol/L 3.5 - 5.0 06/23 Specimen Type: SERUM No comment entered. Ordering Provider: LORRAINE LEE Report Released Date/Time: Jun 23, 2024 01:45 PM Reporting Lab: [facility] [place] [facility] [address] [address] Performing Lab: [facility] [place] [facility] [address] [address] [facility] [place] [facility] ELECTROL YTE PANEL CHLORIDE [MOLES/VOL UME] IN SERUM OR PLASMA 111 mmol/L 100 - 110 06/23 H Specimen Type: SERUM No comment entered. Ordering Provider: LORRAINE LEE Report Released Date/Time: Jun 23, 2024 01:45 PM Reporting Lab: [facility] [place] [facility] [address] [address] Performing Lab: [facility] [place] [address] [address] [facility] [place] [facility] ELECTROL YTE PANEL CARBON DIOXIDE, TOTAL [MOLES/VOL UME] IN SERUM OR PLASMA 22 meq/L 20 - 30 06/23 Specimen Type: SERUM No comment entered. Ordering Provider: LORRAINE LEE Report Released Date/Time: Jun 23, 2024 01:45 PM Reporting Lab: [facility] [place] [facility] [address] [address] Performing Lab: [facility] [place] [address] [address] [facility] [place] [facility] BASIC METABOLI C PANEL (fasting ) UREA NITROGEN [MASS/VOLU ME] IN SERUM OR PLASMA 17 mg/dL 7 - 25 05/20 Specimen Type: SERUM No comment entered. Ordering Provider: LORRAINE LEE Report Released Date/Time: May 20, 2024 10:20 AM Reporting Lab: [place] [facility] [place] [facility] [address] [address] Performing Lab: IN CN[facility]L [facility] [address] [address] [facility] W[facility]N [facility] BASIC METABOLI C PANEL (fasting ) GLUCOSE [MASS/VOLU ME] IN SERUM OR PLASMA 90 mg/dL 65 - 100 05/20 Specimen Type: SERUM No comment entered. Ordering Provider: LORRAINE LEE Report Released Date/Time: May 20, 2024 10:20 AM Reporting Lab: [facility] [address] Performing Lab: IN CN[facility]L [facility] [address] [address] [facility]USE [facility] BASIC METABOLI C PANEL (fasting ) SODIUM [MOLES/VOL UME] IN SERUM OR PLASMA 141 mmol/L 135 - 145 05/20 Specimen Type: SERUM No comment entered. Ordering Provider: LORRAINE LEE Report Released Date/Time: May 20, 2024 10:20 AM Reporting Lab: [facility] [address] [address] Performing Lab: IN CN[facility]L [facility] [address] [address] [facility]ENTERUSE [facility] BASIC METABOLI C PANEL (fasting ) POTASSIUM [MOLES/VOL UME] IN SERUM OR PLASMA 4.5 mmol/L 3.5 - 5.0 05/20 Specimen Type: SERUM No comment entered. Ordering Provider: LORRAINE LEE Report Released Date/Time: May 20, 2024 10:20 AM Reporting Lab: [facility]RL [facility]ENTERUSETS [address] [address] Performing Lab: IN CNTRL WSTRN [address] [address] [facility]PITALRELBA [facility] HOSPITALN [facility] BASIC METABOLI C PANEL (fasting ) CHLORIDE [MOLES/VOL UME] IN SERUM OR PLASMA 110 mmol/L 100 - 110 05/20 Specimen Type: SERUM No comment entered. Ordering Provider: LORRAINE LEE Report Released Date/Time: May 20, 2024 10:20 AM Reporting Lab: [facility]ITALRDALE MED[facility] CENTERTRN [facility] [address] Performing Lab: [facility]RL [facility]ENTERUSE[address] [address] [facility]ITALRELBA [facility]AL HOSPITALN [facility] BASIC METABOLI C PANEL (fasting ) CARBON DIOXIDE, TOTAL [MOLES/VOL UME] IN SERUM OR PLASMA 23 meq/L 20 - 30 05/20 Specimen Type: SERUM No comment entered. Ordering Provider: LORRAINE LEE Report Released Date/Time: May 20, 2024 10:20 AM Reporting Lab: [facility]ITALRL TRN [address] [address] Performing Lab: [facility]ITALRL TRN [address] [address] [facility]ITALRELBA [facility]AL HOSPITALN [facility] BASIC METABOLI C PANEL (fasting ) CREATININE [MASS/VOLU ME] IN SERUM OR PLASMA 1.04 mg/dL 0.50 - 1.40 05/20 Specimen Type: SERUM No comment entered. Ordering Provider: LORRAINE LEE Report Released Date/Time: May 20, 2024 10:20 AM Reporting Lab: [facility]RL [facility] [address] Performing Lab: [facility]ITALRL TRN [facility]USE[address] [address] [facility]ITALRELBA [facility]AL HOSPITALN [facility] BASIC METABOLI C PANEL (fasting ) GLOMERULAR FILTRATION RATE/1.73 SQ M.PREDICTE D [VOLUME RATE/AREA] IN SERUM, PLASMA OR BLOOD BY CREATININE -BASED FORMULA (CKD-EPI 2020) 90 mL/min 60 05/20 Specimen Type: SERUM No comment entered. Ordering Provider: LORRAINE LEE Report Released Date/Time: May 20, 2024 10:20 AM Reporting Lab: [facility] [place] [facility] [address] [address] Performing Lab: [facility] [place] [facility] [address] [address] [facility] [place] [facility] CBC AND DIFF (AUTO) LEUKOCYTES [#/VOLUME] IN BLOOD BY AUTOMATED COUNT 4.97 10*3/uL 4.50 - 11.00 05/20 Specimen Type: BLOOD No comment entered. Ordering Provider: LORRAINE LEE Report Released Date/Time: May 20, 2024 10:20 AM Reporting Lab: [facility] [place] [facility] [address] [facility] [address] Performing Lab: [facility] [place] [facility] [address] [address] [facility] [place] [facility] CBC AND DIFF (AUTO) ERYTHROCYT ES [#/VOLUME] IN BLOOD BY AUTOMATED COUNT 4.80 10*6/uL 4.23 - 5.66 05/20 Specimen Type: BLOOD No comment entered. Ordering Provider: LORRAINE LEE Report Released Date/Time: May 20, 2024 10:20 AM Reporting Lab: [facility] [place] [facility] [address] [facility] [address] Performing Lab: [facility] [place] [facility] [address] [address] [facility] [place] [facility] CBC AND DIFF (AUTO) HEMOGLOBIN [MASS/VOLU ME] IN BLOOD 14.5 g/dL 12.8 - 17 05/20 Specimen Type: BLOOD No comment entered. Ordering Provider: LORRAINE LEE Report Released Date/Time: May 20, 2024 10:20 AM Reporting Lab: [facility] [place] [facility] [address] [facility] [address] Performing Lab: [facility] [place] [facility] [address] [address] [facility] [place] [facility] CBC AND DIFF (AUTO) HEMATOCRIT [VOLUME FRACTION] OF BLOOD BY AUTOMATED COUNT 43.2 39.2 - 50.4 05/20 Specimen Type: BLOOD No comment entered. Ordering Provider: LORRAINE LEE Report Released Date/Time: May 20, 2024 10:20 AM Reporting Lab: [facility] [place] [facility] [address] [address] Performing Lab: [facility] [place] [facility] [address] [address] [facility] [place] [facility] CBC AND DIFF (AUTO) MCV [ENTITIC VOLUME] BY AUTOMATED COUNT 90.0 fL 82 - 99 05/20 Specimen Type: BLOOD No comment entered. Ordering Provider: LORRAINE LEE Report Released Date/Time: May 20, 2024 10:20 AM Reporting Lab: [facility] [facility] [address] [address] Performing Lab: [facility] [place] [facility] [address] [address] [place]L [place] [facility] CBC AND DIFF (AUTO) MCHC [MASS/VOLU ME] BY AUTOMATED COUNT 33.6 g/dL 30.8 - 35.1 05/20 Specimen Type: BLOOD No comment entered. Ordering Provider: LORRAINE LEE Report Released Date/Time: May 20, 2024 10:20 AM Reporting Lab: [facility] [facility] [address] [address] Performing Lab: [facility] [place] [facility] [address] [address] [facility] [place] [facility] CBC AND DIFF (AUTO) PLATELETS [#/VOLUME] IN BLOOD BY AUTOMATED COUNT 260 10*3/uL 140 - 360 05/20 Specimen Type: BLOOD No comment entered. Ordering Provider: LORRAINE LEE Report Released Date/Time: May 20, 2024 10:20 AM Reporting Lab: [facility] [place] [facility] [address] [address] Performing Lab: [facility] [place] [facility] [address] [address] [facility] [place] [facility] CBC AND DIFF (AUTO) ERYTHROCYT E DISTRIBUTI ON WIDTH [RATIO] BY AUTOMATED COUNT 12.0 12.0 - 16.0 05/20 Specimen Type: BLOOD No comment entered. Ordering Provider: LORRAINE LEE Report Released Date/Time: May 20, 2024 10:20 AM Reporting Lab: [place] [facility] [place] [facility] [address] [address] Performing Lab: [facility] [place] [facility] [address] [address] [facility] [place] [facility] CBC AND DIFF (AUTO) MONOCYTES [#/VOLUME] IN BLOOD BY AUTOMATED COUNT 0.50 10*3/uL 0.30 - 1.10 05/20 Specimen Type: BLOOD No comment entered. Ordering Provider: LORRAINE LEE Report Released Date/Time: May 20, 2024 10:20 AM Reporting Lab: [place] [place] [address] [address] Performing Lab: [place] [facility] [place] [address] [address] [facility] CBC AND DIFF (AUTO) MCH [ENTITIC MASS] BY AUTOMATED COUNT 30.2 pg 26.2 - 32.6 05/20 Specimen Type: BLOOD No comment entered. Ordering Provider: LORRAINE LEE Report Released Date/Time: May 20, 2024 10:20 AM Reporting Lab: [facility] [place] [address] [address] Performing Lab: [facility] [address] [address] [facility] CBC AND DIFF (AUTO) NEUTROPHIL S/100 LEUKOCYTES IN BLOOD BY AUTOMATED COUNT 46.3 43.7 - 75.8 05/20 Specimen Type: BLOOD No comment entered. Ordering Provider: LORRAINE LEE Report Released Date/Time: May 20, 2024 10:20 AM Reporting Lab: [facility] [place] [address] [address] Performing Lab: [facility] [place] [address] [facility] [address] [facility] CBC AND DIFF (AUTO) LYMPHOCYTE S/100 LEUKOCYTES IN BLOOD BY AUTOMATED COUNT 36.6 14.0 - 42.3 05/20 Specimen Type: BLOOD No comment entered. Ordering Provider: LORRAINE LEE Report Released Date/Time: May 20, 2024 10:20 AM Reporting Lab: [facility] [address] [facility] [address] Performing Lab: [facility] [address] [facility] [address] [facility] CBC AND DIFF (AUTO) MONOCYTES/ 100 LEUKOCYTES IN BLOOD BY AUTOMATED COUNT 10.1 5.1 - 13.7 05/20 Specimen Type: BLOOD No comment entered. Ordering Provider: LORRAINE LEE Report Released Date/Time: May 20, 2024 10:20 AM Reporting Lab: [facility] [address] [facility] [address] Performing Lab: [facility] [address] [facility] [address] [facility] CBC AND DIFF (AUTO) EOSINOPHIL S/100 LEUKOCYTES IN BLOOD BY AUTOMATED COUNT 5.2 0.4 - 6.8 05/20 Specimen Type: BLOOD No comment entered. Ordering Provider: LORRAINE LEE Report Released Date/Time: May 20, 2024 10:20 AM Reporting Lab: [facility] [address] [facility] [address] Performing Lab: [facility] [address] [facility] [address] [facility] CBC AND DIFF (AUTO) BASOPHILS/ 100 LEUKOCYTES IN BLOOD BY AUTOMATED COUNT 1.2 0.1 - 2.0 05/20 Specimen Type: BLOOD No comment entered. Ordering Provider: LORRAINE LEE Report Released Date/Time: May 20, 2024 10:20 AM Reporting Lab: [facility] [address] [facility] [address] Performing Lab: [facility] [address] [facility] [address] [facility] CBC AND DIFF (AUTO) NEUTROPHIL S [#/VOLUME] IN BLOOD BY AUTOMATED COUNT 2.30 10*3/uL 2.20 - 7.60 05/20 Specimen Type: BLOOD No comment entered. Ordering Provider: LORRAINE LEE Report Released Date/Time: May 20, 2024 10:20 AM Reporting Lab: [facility] [address] [facility] [address] Performing Lab: [facility] [address] [facility] [address] [facility] CBC AND DIFF (AUTO) LYMPHOCYTE S [#/VOLUME] IN BLOOD BY AUTOMATED COUNT 1.82 10*3/uL 1.00 - 3.20 05/20 Specimen Type: BLOOD No comment entered. Ordering Provider: LORRAINE LEE Report Released Date/Time: May 20, 2024 10:20 AM Reporting Lab: [facility] [address] [facility] [address] Performing Lab: [facility] [address] [facility] [address] [facility] CBC AND DIFF (AUTO) EOSINOPHIL S [#/VOLUME] IN BLOOD BY AUTOMATED COUNT 0.26 10*3/uL 0.03 - 0.44 05/20 Specimen Type: BLOOD No comment entered. Ordering Provider: LORRAINE LEE Report Released Date/Time: May 20, 2024 10:20 AM Reporting Lab: [facility] [address] [facility] [address] Performing Lab: [facility] [address] [facility] [address] [facility] CBC AND DIFF (AUTO) BASOPHILS [#/VOLUME] IN BLOOD BY AUTOMATED COUNT 0.06 10*3/uL 0.01 - 0.13 05/20 Specimen Type: BLOOD No comment entered. Ordering Provider: LORRAINE LEE Report Released Date/Time: May 20, 2024 10:20 AM Reporting Lab: [facility] [address] [facility] [address] Performing Lab: [facility] [address] [facility] [address] [facility] CBC AND DIFF (AUTO) IMMATURE GRANULOCYT ES/100 LEUKOCYTES IN BLOOD BY AUTOMATED COUNT 0.6 0.0 - 0.7 05/20 Specimen Type: BLOOD No comment entered. Ordering Provider: LORRAINE LEE Report Released Date/Time: May 20, 2024 10:20 AM Reporting Lab: [facility] [address] [facility] [address] Performing Lab: [facility] [address] [address] [facility] CBC AND DIFF (AUTO) IMMATURE GRANULOCYT ES [#/VOLUME] IN BLOOD 0.03 10*3/uL 0.00 - 0.06 05/20 Specimen Type: BLOOD No comment entered. Ordering Provider: LORRAINE LEE Report Released Date/Time: May 20, 2024 10:20 AM Reporting Lab: [facility] [address] [facility] [address] Performing Lab: [facility] [address] [facility] [address] [facility] CBC AND DIFF (AUTO) NRBC % 0.0 0.0 - 0.0 05/20 Specimen Type: BLOOD No comment entered. Ordering Provider: LORRAINE LEE Report Released Date/Time: May 20, 2024 10:20 AM Reporting Lab: [facility] [address] [facility] [address] Performing Lab: [facility] [address] [address] [facility] CBC AND DIFF (AUTO) NRBC, ABS 0.00 10*3/uL 0.00 - 0.00 05/20 Specimen Type: BLOOD No comment entered. Ordering Provider: LORRAINE LEE Report Released Date/Time: May 20, 2024 10:20 AM Reporting Lab: [address] [address] Performing Lab: [address] [address] [facility] HEMOGLOB IN A1C PANEL HEMOGLOBIN A1C/HEMOGL OBIN.TOTAL IN BLOOD BY HPLC 5.1 4.0 - 5.6 05/20 Specimen Type: BLOOD Comment: Values obtained from A1C measurement s can vary. For atypical A1C assays, a reported value of 7.0 could actually be between 6.72 and 7.28 if measured by a reference method. A reported value of 9.0 could actually be between 8.73 and 9.27. Ref: http://www. ngsp.org/[place] Pdata.asp Ordering Provider: LORRAINE LEE Report Released Date/Time: May 20, 2024 10:20 AM Reporting Lab: [address] [address] Performing Lab: [address] [address] [facility] HEPATITI S B SURFACE ANTIBODY (HBsAb)- WH HEPATITIS B VIRUS SURFACE AB [PRESENCE] IN SERUM BY IMMUNOASSA Y REACTIVE 05/20 Specimen Type: SERUM Comment: A 'Reactive' result indicates HBsAb results >/= 12.0 mIU/mL and immunity to HBV infection. Ordering Provider: LORRAINE LEE Report Released Date/Time: May 20, 2024 10:20 AM Reporting Lab: [address] [address] Performing Lab: [address] [address] [facility] LIPID PANEL FASTING CHOLESTERO L [MASS/VOLU ME] IN SERUM OR PLASMA 158 mg/dL 05/20 Specimen Type: SERUM No comment entered. Ordering Provider: LORRAINE LEE Report Released Date/Time: May 20, 2024 10:20 AM Reporting Lab: [facility] [address] [facility] [address] Performing Lab: [facility] [address] [facility] [address] [facility] LIPID PANEL FASTING TRIGLYCERI DE [MASS/VOLU ME] IN SERUM OR PLASMA 74 mg/dL 0 - 150 05/20 Specimen Type: SERUM No comment entered. Ordering Provider: LORRAINE LEE Report Released Date/Time: May 20, 2024 10:20 AM Reporting Lab: [facility] [address] [facility] [address] Performing Lab: [facility] [address] [facility] [address] [facility] LIPID PANEL FASTING CHOLESTERO L IN LDL [MASS/VOLU ME] IN SERUM OR PLASMA BY CALCULATIO N 103 mg/dL 0 - 129 05/20 Specimen Type: SERUM No comment entered. Ordering Provider: LORRAINE LEE Report Released Date/Time: May 20, 2024 10:20 AM Reporting Lab: [facility] [address] [facility] [address] Performing Lab: [facility] [address] [facility] [address] [facility] LIPID PANEL FASTING CHOLESTERO L.TOTAL/CH OLESTEROL IN HDL [MASS RATIO] IN SERUM OR PLASMA 4.0 05/20 Specimen Type: SERUM No comment entered. Ordering Provider: LORRAINE LEE Report Released Date/Time: May 20, 2024 10:20 AM Reporting Lab: [facility] [address] [facility] [address] Performing Lab: [facility] [facility] [address] [facility] [address] [facility] LIPID PANEL FASTING CHOLESTERO L IN HDL [MASS/VOLU ME] IN SERUM OR PLASMA 40 mg/dL 40 - 60 05/20 Specimen Type: SERUM No comment entered. Ordering Provider: LORRAINE LEE Report Released Date/Time: May 20, 2024 10:20 AM Reporting Lab: [facility] [place] [facility] [address] [facility] [address] Performing Lab: [facility] [facility] [address] [facility] [address] [facility] LIVER FUNCTION PROTEIN [MASS/VOLU ME] IN SERUM OR PLASMA 7.3 g/dL 6.0 - 8.3 05/20 Specimen Type: SERUM No comment entered. Ordering Provider: LORRAINE LEE Report Released Date/Time: May 20, 2024 10:20 AM Reporting Lab: [facility] [address] [address] Performing Lab: [facility] [facility] [address] [facility] [address] [facility] LIVER FUNCTION ALBUMIN [MASS/VOLU ME] IN SERUM OR PLASMA 4.3 g/dL 3.5 - 5.0 05/20 Specimen Type: SERUM No comment entered. Ordering Provider: LORRAINE LEE Report Released Date/Time: May 20, 2024 10:20 AM Reporting Lab: [facility] [address] [address] Performing Lab: [facility] [address] [facility] [address] [facility] LIVER FUNCTION ALKALINE PHOSPHATAS E [ENZYMATIC ACTIVITY/V OLUME] IN SERUM OR PLASMA 42 U/L 40 - 150 05/20 Specimen Type: SERUM No comment entered. Ordering Provider: LORRAINE LEE Report Released Date/Time: May 20, 2024 10:20 AM Reporting Lab: [facility] [address] [address] Performing Lab: [facility] [address] [facility] [address] [facility] LIVER FUNCTION ASPARTATE AMINOTRANS FERASE [ENZYMATIC ACTIVITY/V OLUME] IN SERUM OR PLASMA 17 U/L 5 - 34 05/20 Specimen Type: SERUM No comment entered. Ordering Provider: LORRAINE LEE Report Released Date/Time: May 20, 2024 10:20 AM Reporting Lab: [facility] [address] [facility] [address] Performing Lab: [facility] [facility] [address] [facility] [address] [facility] LIVER FUNCTION ALANINE AMINOTRANS FERASE [ENZYMATIC ACTIVITY/V OLUME] IN SERUM OR PLASMA 22 U/L 05/20 Specimen Type: SERUM No comment entered. Ordering Provider: LORRAINE LEE Report Released Date/Time: May 20, 2024 10:20 AM Reporting Lab: [facility] [address] [address] Performing Lab: [facility] [address] [address] [facility] LIVER FUNCTION BILIRUBIN. TOTAL [MASS/VOLU ME] IN SERUM OR PLASMA 0.4 mg/dL 0.2 - 1.2 05/20 Specimen Type: SERUM No comment entered. Ordering Provider: LORRAINE LEE Report Released Date/Time: May 20, 2024 10:20 AM Reporting Lab: [facility] [address] [address] Performing Lab: [facility] [address] [address] [facility] TSH THYROTROPI N [UNITS/VOL UME] IN SERUM OR PLASMA 1.86 u[IU]/mL 0.35 - 5.00 05/20 Specimen Type: SERUM No comment entered. Ordering Provider: LORRAINE LEE Report Released Date/Time: May 20, 2024 10:20 AM Reporting Lab: [facility] [address] [facility] [address] Performing Lab: [facility] [address] [facility] [address] [facility] URIC ACID URATE [MASS/VOLU ME] IN SERUM OR PLASMA 6.9 mg/dL 3.5 - 7.2 05/20 Specimen Type: SERUM No comment entered. Ordering Provider: LORRAINE LEE Report Released Date/Time: May 20, 2024 10:20 AM Reporting Lab: [facility] [address] [facility] [address] Performing Lab: [facility] [address] [facility] [address] [facility] Vital Signs Combined list of inpatient and outpatient Vital Signs from Department of Defense and Veterans Affairs, ranging from 12 months to all on record, depending upon the facility. Vital Sign Value Date Comments Source SYSTOLIC BLOOD PRESSURE 160 09/16/20 24 11:13:28 [facility] DIASTOLIC BLOOD PRESSURE 83 024 11:13:28 [facility] PULSE OXIMETRY 98 09/16/2024 11:13:28 [facility] WEIGHT 211.2 09/16/2024 11:13:28 [facility] BMI 33 kg/m2 09/16/2024 11:13:28 [facility] PAIN 0 09/16/2024 11:13:28 [facility] HEIGHT 67 09/16/2024 11:13:28 [facility] TEMPERATURE 98.2 09/16/2024 11:13:28 [facility] PULSE 82 09/16/2024 11:13:28 [facility] RESPIRATION 16 09/16/2024 11:13:28 [facility] SYSTOLIC BLOOD PRESSURE 175 08/15/20 24 08:44:44 [facility] DIASTOLIC BLOOD PRESSURE 100 024 08:44:44 [facility] PULSE OXIMETRY 98 08/15/2024 08:44:44 [facility] WEIGHT 215 08/15/2024 08:44:44 [facility] BMI 34 kg/m2 08/15/2024 08:44:44 [facility] PAIN 0 08/15/2024 08:44:44 [facility] HEIGHT 67 08/15/2024 08:44:44 [facility] TEMPERATURE 97.4 08/15/2024 08:44:44 [facility] PULSE 74 08/15/2024 08:44:44 [facility] RESPIRATION 16 08/15/2024 08:44:44 [facility] SYSTOLIC BLOOD PRESSURE 178 06/23/20 13:31:58 [facility] DIASTOLIC BLOOD PRESSURE 99 024 13:31:58 [facility] PULSE OXIMETRY 95 06/23/2024 13:31:58 [facility] WEIGHT 217.6 06/23/2024 13:31:58 [facility] BMI 34 kg/m2 06/23/2024 13:31:58 [facility] PAIN 0 06/23/2024 13:31:58 [facility] HEIGHT 67 06/23/2024 13:31:58 [facility] TEMPERATURE 97.6 06/23/2024 13:31:58 [facility] PULSE 80 06/23/2024 13:31:58 [facility] RESPIRATION 18 06/23/2024 13:31:58 [facility] SYSTOLIC BLOOD PRESSURE 163 05/20/20 13:57:59 [facility] DIASTOLIC BLOOD PRESSURE 100 024 13:57:59 [facility] PULSE OXIMETRY 98 05/20/2024 13:57:59 [facility] WEIGHT 211 05/20/2024 13:57:59 [facility] BMI 33 kg/m2 05/20/2024 13:57:59 [facility] PAIN 0 05/20/2024 13:57:59 [facility] HEIGHT 67 05/20/2024 13:57:59 [facility] TEMPERATURE 97.6 05/20/2024 13:57:59 [facility] PULSE 74 05/20/2024 13:57:59 [facility] RESPIRATION 16 05/20/2024 13:57:59 [facility] SYSTOLIC BLOOD PRESSURE 188 03/20/20 15:49:32 [facility] DIASTOLIC BLOOD PRESSURE 105 024 15:49:32 [facility] PULSE OXIMETRY 98 03/20/2024 15:49:32 [facility] WEIGHT 217.4 03/20/2024 15:49:32 [facility] BMI 34 kg/m2 03/20/2024 15:49:32 [facility] PAIN 0 03/20/2024 15:49:32 [facility] HEIGHT 67 03/20/2024 15:49:32 [facility] TEMPERATURE 97.7 03/20/2024 15:49:32 [facility] PULSE 82 03/20/2024 15:49:32 [facility] RESPIRATION 16 03/20/2024 15:49:32 [facility] Encounters Combined list of: 1) Encounters from Department of Veterans Affairs facilities going backup to the last 18 months, not all VA inpatient encounters are included; 2) Encounters from the Department of Defense facilities going backup to 280 months. Location Location Details Encounter Type Encounter Number Reason For Visit Attending Provider ADM Date DC Date Status Disposition [place] [address]([facility]) OUTPATIENT [id number] 1100 FEVER (331/49 0/W4) ODALYS RIVERA 04/19 [facility]ick [facility] [place] [place] [address](T [facility] Gelacio[facility]ema aguillon d) [place] [address]([facility], [facility]) OUTPATIENT [id number] 0820 F/U PNEUMON IA/FEVE R 331/490 /4 ODALYS RIVERA 04/22 [facility] with [facility] [place] [place] [address]T [facility] Gelacio[facility]af aguillonlan d) [place] [facility] [facility] [facility]) OUTPATIENT [id number] [employer] SHADI HERNANDEZ 06/09 Released w/o Limitations [place] Occup[place]) [place]) OUTPATIENT [id number] [facility]FEREN [facility] PE AUDIO FOR [employer].. ANNA COX 06/13 Released w/o Limitations [place] [facility] [facility] OUTPATIENT [id number] 04/30 Released w/o Limitations [facility] Outpatient Encounter [id number] 02/28 [facility] Out[facility] Encounter [id number] 03/20 [facility] [place] O/P EST LOW 20 MIN [id number] Diagnos is: ICD-10- CM E66.9 Obesity , unspeci fied [place] 03[place] [facility] Outpatient Encounter [id number] [facility] Outpatient Encounter [id number] [facility] Outpatient Encounter [id number] 1.05/20 [facility] [place] O/P EST LOW 20 MIN [id number] Diagnos is: ICD-10- CM R03.0 Elevate d blood-p ressure reading , w/o diagnos is of htn [place]05/20 [place] O/P EST LOW 20 MIN [id number] Diagnos is: ICD-10- CM I10 Essenti al (primar y) hyperte [place] [facility] Outpatient Encounter [id number] 07/23 [facility] [place] O/P EST LOW 20 MIN [id number] Diagnos is: ICD-10- CM I10 Essenti al (primar y) hyperte [place] O/P EST LOW 20 MIN [id number] Diagnos is: ICD-10- CM I10 Essenti al (primar y) hyperte [place] YVONNE09/16 [place] [facility] Outpatient Encounter [id number] 10/02 [facility] Out[facility] Encounter [id number] Alan GABRIEL 10/20 [facility] Out[facility] Encounter [id number] 11/24 [facility] Out[facility] Encounter [id number] 11/24 [facility] Procedures Combined list of: 1) Procedures from Department of Veterans Affairs facilities going back up to thelast 18 months, not all [place] non-surgical procedures are included; 2) All procedures from the Department of Defense facilities. Procedure Procedure Type Code Date Perfomer Comments Sourc e PURE TONE AUDIOMETRY (THRESHOLD); AIR ONLY 06/13/2010 [facility] PATIENT EDUCATION, NOT OTHERWISE CLASSIFIED, NON-PHYSICIAN PROVIDER, INDIVIDUAL, PER SESSION 06/09/2010 [facility] THERAPEUTIC, PROPHYLACTIC, OR DIAGNOSTIC INJECTION (SPECIFY SUBSTANCE OR DRUG); SUBCUTANEOUS OR INTRAMUSCULAR 03/30/2010 [facility] Threshold Audiogram (Pure Tone) Threshold Audiogram (Pure Tone) [id number] 06/13/2010 ANNA [facility]. [facility] Audiometry Group Testing Audiometry Group Testing [id number] 06/13/2010 ANNA [facility]. [facility] Patient education, not otherwise cla ified, non-physician provider, individual, per se ion 06/13/2010 ANNA [facility]. [facility] Patient education, not otherwise cla ified, non-physician provider, individual, per se ion 06/10/2010 SHADI HERNANDEZ [facility] Threshold Audiogram (Pure Tone) Threshold Audiogram (Pure Tone) [id number] 06/10/2010 SHADI HERNANDEZ [facility] Social History Combined list of available smoking, tobacco, and other social history from Department of Defense and Veterans Affairs facilities. Social History Type Response Date Comment Sourc e Tobacco smoking status [facility] VA-TOBACCO FORMER USER 03/20/2024 [place] History of tobacco use IN-TOBACCO QUIT 5 TO < 15 YRS 03/20/2024 [place] History of tobacco use IN-TOBACCO FORMER [facility]ER [facility] This section is an empty social history section. [facility] Plan of Care List of future care activities from Department of Veterans Affairs facilities. Additional future care activities may be listed in the Assessment and Plan section. Date/Time Care Activity Care Activity Detail Facili ty 01/02/2025 AMBULATORY - NONE AM[facility]ATORY [facility] NONE [facility] [place] [facility] 03/17/2025 AMBULATORY - MEDICINE [facility] [place] [facility] 11/26/2024 Consult Order COMMUNITY CARE-C OLONOSCOPY SCREENING Cons Executive Vice President And Chief Financial Officer[facility] Choice [facility]
[2025-01-02 10:38] VITALS: BMI 32.3
[2025-01-02 10:43] VITALS: BP 146/89; PULSE 73; RESP 16; TEMP 36.8; O2SAT 98
[2025-01-02] MEDS: Lactated Ringers 1,000 ML 100 ML IVCONT (10:55)
--- NOTE | 2025-01-02 12:51 | P.CONAN_ITS ---
FORM[facility]LY [facility] Active Problems Active Problems: All Active Problems Gout (Acute) Past Medical History Medical History Gout Diverticulitis HTN (hypertension) Functional capacity: independent ambulation Family History Family history of problems with anesthesia: No Surgical History Surgical History Hx of adenoidectomy Hx of right inguinal hernia repair History of Problems with Anesthesia: No Social History Social History Patient Tobacco Use Status: Former Tobacco user Tobacco use type: Cigarette Use of substances other than those prescribed or required for medical reasons: Yes Are you DNR?: No Advance Directives: No Advance Directives Information Provided: Yes Recently lost weight without trying: No Nutrition Risks: No Nutritional Risk Poor oral hygiene: No Meds Allergies Allergy/AdvReac Type Severity Reaction Status Date / Time No Known Allergies Allergy Verified 01/02/25 10:36 Active Medications: Current Medications Lactated Ringer's (Lr) 1,000 mls @ 100 mls/hr IVCONT .Q10H MILLIE Last Admin: 01/02/25 10:55 Dose: 100 mls/hr Sodium Biphosphate/Sodium Phosphate (Sodium Phosphate,Dorado-Dibasic 133 Ml Enema) 133 ml NE ONCE PRN PRN Reason: Poor Colonoscopy Prep Results Home Medications ?Medication ?Instructions ?Recorded ?Confirmed ?Last Taken ?Type allopurinol 100 mg PO DAILY 12/31/24 01/02/25 01/02/25 History lisinopril 10 mg PO DAILY 12/31/24 01/02/25 01/02/25 History Exam Height,Weight and Vital Signs: Height 5 ft 7 in Weight 93.6 kg Last Vital Signs Temp 98.2 F 01/02/25 10:43 Pulse 73 01/02/25 10:43 Resp 16 01/02/25 10:43 BP 146/89 H 01/02/25 10:43 Pulse Ox 98 01/02/25 10:43 O2 Del Method Room Air 01/02/25 10:43 Airway Mallampati Class: II TM Dist: >3cm Neck ROM: Full Heart: RRR Lungs: CTA Assessment and Plan Assessment Anesthesia Assessment: Anesthesia Plan Discussed and Chart Reviewed Final Anesthetic Review Family History of Problems with Anesthesia: No History of Problems with Anesthesia: No NPO: Yes ASA Class: II Final Preanesthetic Review: Meds/Allgs Chart Reviewed, Consent Obtained/Reviewed and Anes Risks/Benef Reviewed Anesthetic Plan Anesthetic Plan: MAC: Disposition: Standard PACU
[2025-01-02 14:23] VITALS: BP 111/65; PULSE 67; RESP 16; TEMP 37.4; O2SAT 97
--- NOTE | 2025-01-02 14:23 | PM.OP ---
Brief Operative Note Date of Service: 01/02/25 Pre-op diagnosis: Screening Post-op diagnosis: other (Diverticulsosis) Procedure: Colonoscopy to the cecum and TI Surgeon: Addison Napier MD Anesthesia: MAC Was an Hydrate Control Tender used for this Procedure?: No Estimated blood loss (mL): 0 Pathology: none sent Condition: stable Disposition: PACU
--- NOTE | 2025-01-02 15:06 | HO.POSTANES ---
Post Anesthesia Evaluation Post Anesthesia Evaluation Date of Service: 01/02/25 Vital Signs: Vital Signs Temp Pulse Resp BP Pulse Ox O2 Del Method 01/02/25 14:23 99.3 F 67 16 111/65 97 Room Air 01/02/25 10:43 98.2 F 73 16 146/89 H 98 Room Air Anesthesia: Monitored Mental Status: Awake Pain Control: Satisfactory Nausea/Vomiting: None Hydration: Adequate Anesthesia-Related Issues: No Anes. Related Issues
--- NOTE | 2025-01-02 22:05 | OP_ITS ---
DATE OF SERVICE: 01/02/2025 SURGEON: Addison Napier MD INDICATIONS: The patient presents for evaluation of colorectal cancer screening. Full consent has been obtained from him for this, including risks of bleeding and perforation. PREOPERATIVE DIAGNOSIS: Colorectal cancer screening. POSTOPERATIVE DIAGNOSIS: Colorectal cancer screening, occasional diverticulosis, internal hemorrhoids. PROCEDURE PERFORMED: Colonoscopy to cecum and terminal ileum. ESTIMATED BLOOD LOSS: COMPLICATIONS: ANESTHESIA: Medication use; monitored anesthesia care. ASSISTANTS: SPECIMENS: DESCRIPTION OF PROCEDURE: The patient was placed in left lateral decubitus position. The digital rectal exam revealed no abnormalities. The Olympus videopediatric colonoscope was entered into the rectum and advanced easily to the cecum. Once in the cecum, I did identify normal-appearing cecal pouch with appendiceal orifice and a normal-appearing ileocecal valve. The terminal ileum was cannulated and appeared normal. The scope was withdrawn back in the colon. The entire cecum and ileocecal valve appeared normal. The scope was slowly withdrawn assessing all mucosal surfaces carefully. Preparation was excellent. I did not visualize any sign of polyps, colitis nor angiodysplasia. There were occasional diverticula in the sigmoid colon. In the rectum, scope was retroflexed visualizing internal hemorrhoids, but no other pathology. The rectal mucosa appeared normal. The scope was straightened and withdrawn from the patient. He tolerated the procedure well and was returned to the recovery area in stable condition. IMPRESSION: 1. Occasional sigmoid diverticulosis. 2. Internal hemorrhoids. PLAN: Given the negative exam, I would recommend a followup coloscopy in 10 years for further screening. He will otherwise see me on a p.r.n. basis. This has been discussed with his mother. MD REBECCA Javier/BELLEL / [id number]
== END 2025-01-02 15:05 | disposition home or self-care (01) ==
PROVIDERS: PCP Family Medicine; Visit Provider Internal Medicine
PROC: 0DJD8ZZ Inspection of Lower Intestinal Tract, Via Natural or Artificial Opening Endoscopic (ICD-10-PCS; CPT 45378; principal; 2025-01-02 12:30)
DX: Z12.11 Encounter for screening for malignant neoplasm of colon (principal); K57.30 Diverticulosis of large intestine without perforation or abscess without bleeding; Z87.19 Personal history of other diseases of the digestive system; K64.8 Other hemorrhoids; I10 Essential (primary) hypertension; M10.9 Gout, unspecified; Z79.899 Other long term (current) drug therapy; Z98.890 Other specified postprocedural states; Z87.891 Personal history of nicotine dependence
CPT/HCPCS: 45378; J2003; J2704